=== PATIENT | male | born 1975 | race Caucasian/White ===

== ENCOUNTER 2020-08-28 14:01 | Observation (INO) ==
[2020-08-28] MEDS ORDERED: Ondansetron ODT 4 MG TAB.RAPDIS SL PRN (16:58)
[2020-08-28] MEDS ORDERED: Acetaminophen 325 MG TABLET PO PRN (16:58)
[2020-08-28] MEDS ORDERED: *HR* HYDROmorphone (PF) 1 MG/ML SYRINGE IVP PRN (17:01)
[2020-08-28] MEDS ORDERED: *HR* OxyCODONE Immed Rel 5 MG TABLET PO PRN (17:01)
[2020-08-28] MEDS ORDERED: Ringers Solution, Lactated 1,000 ML IVC ONE (17:13)
[2020-08-28 17:31] LABS: Hematocrit 41.2 % (37.5-50.1); Hemoglobin 14.1 g/dL (12.9-16.9); Mean Corpuscular HGB Conc 34.2 g/dL (31.6-35.5); Mean Corpuscular Hemoglobin 30.7 pg (28.0-33.3); Mean Corpuscular Volume 89.8 fL (83.0-100.0); Mean Platelet Volume 9.4 fL (9.4-12.4); Platelet Count 257 K/mcL (140-400); Red Blood Count 4.59 M/mcL (4.19-5.50); Red Cell Distribution Width 13.3 % (11.5-14.5); White Blood Count 13.2 K/mcL (4.3-11.1)
[2020-08-28 17:39] LABS: INR 1.1; Prothrombin Time 12.7 Seconds (9.4-12.1)
[2020-08-28 17:51] LABS: BUN/Creatinine Ratio 10 (6-26); Blood Urea Nitrogen 12 mg/dL (6-20); Calcium 8.9 mg/dL (8.6-10.3); Carbon Dioxide 24 mEq/L (23-29); Chloride 108 mEq/L (98-107); Glucose 101 mg/dL (70-105); Osmolality,Calculated 284 (280-300); Potassium 4.2 mEq/L (3.5-5.1); Sodium 137 mEq/L (136-145); eGFR For African Americans > 60 (> 60); eGFR For Non-African Americans > 60 (> 60)
[2020-08-28] MEDS: Ringers Solution, Lactated 1,000 ML IVC SCH (18:26)
[2020-08-28] MEDS: Nicotine 21 MG PATCH.TD24 TD SCH (18:26)
[2020-08-29 03:16] LABS: Hematocrit 39.1 % (37.5-50.1); Hemoglobin 13.1 g/dL (12.9-16.9); Mean Corpuscular HGB Conc 33.5 g/dL (31.6-35.5); Mean Corpuscular Hemoglobin 30.4 pg (28.0-33.3); Mean Corpuscular Volume 90.7 fL (83.0-100.0); Platelet Count 239 K/mcL (140-400); Red Blood Count 4.31 M/mcL (4.19-5.50); Red Cell Distribution Width 13.3 % (11.5-14.5); White Blood Count 9.1 K/mcL (4.3-11.1)
[2020-08-29 03:34] LABS: BUN/Creatinine Ratio 13 (6-26); Blood Urea Nitrogen 14 mg/dL (6-20); Calcium 8.9 mg/dL (8.6-10.3); Carbon Dioxide 25 mEq/L (23-29); Chloride 107 mEq/L (98-107); Glucose 115 mg/dL (70-105); Osmolality,Calculated 287 (280-300); Potassium 3.9 mEq/L (3.5-5.1); Sodium 138 mEq/L (136-145); eGFR For African Americans > 60 (> 60); eGFR For Non-African Americans > 60 (> 60)
[2020-08-29] MEDS ORDERED: *HR* FentaNYL (PF) 100 MCG/2 ML VIAL IVP PRN (07:13)
[2020-08-29] MEDS ORDERED: *HR* HYDROmorphone PF 0.5 MG/0.5 ML SYRINGE IVP PRN (07:13)
[2020-08-29] MEDS: Nicotine 21 MG PATCH.TD24 TD SCH (07:29)
[2020-08-29] MEDS: Ringers Solution, Lactated 1,000 ML IVC SCH ×2 (07:32→12:00)
[2020-08-29] MEDS ORDERED: Isovue-300 50ML VIAL ONE (08:14)
[2020-08-29] MEDS ORDERED: *HR* Propofol 200 MG/20 ML VIAL IVP ONE (08:52)
[2020-08-29] MEDS ORDERED: Lidocaine -MPF 2% 2 ML VIAL ONE (08:53)
[2020-08-29] MEDS ORDERED: Ondansetron 4 MG/2 ML VIAL ONE (08:53)
[2020-08-29] MEDS ORDERED: *HR* FentaNYL (PF) 100 MCG/2 ML VIAL ONE (08:53)
[2020-08-29] MEDS ORDERED: *HR* Midazolam HCl 2 MG/2 ML VIAL ONE (08:53)
[2020-08-29] MEDS ORDERED: Ketorolac 30 MG/ML VIAL ONE (09:32)
[2020-08-29] MEDS ORDERED: EPHEDrine 50 MG/ML VIAL ONE (09:40)
[2020-08-29] MEDS ORDERED: Ketorolac 15 MG/ML VIAL IVP PRN (10:34)
[2020-08-29] MEDS ORDERED: *HR* OxyCODONE Immed Rel 5 MG TABLET PO PRN (10:34)
[2020-08-29] MEDS ORDERED: *HR* HYDROmorphone (PF) 1 MG/ML SYRINGE IVP PRN (10:34)
[2020-08-29] MEDS ORDERED: Ondansetron ODT 4 MG TAB.RAPDIS SL PRN (10:34)
[2020-08-29] MEDS: Acetaminophen IV 1,000 MG/100 ML BAG IVPB SCH ×2 (12:04→18:11)
[2020-08-29] MEDS: *HR* HYDROmorphone (PF) 1 MG/ML SYRINGE IVP PRN (17:11)
[2020-08-30] MEDS: Acetaminophen IV 1,000 MG/100 ML BAG IVPB SCH ×3 (00:40→13:31)
[2020-08-30] MEDS: Ringers Solution, Lactated 1,000 ML IVC SCH (00:45)
[2020-08-30] MEDS: *HR* HYDROmorphone (PF) 1 MG/ML SYRINGE IVP PRN (03:33)
[2020-08-30] MEDS ORDERED: Ketorolac 30 MG/ML VIAL IVP ONE (08:19)
[2020-08-30] MEDS ORDERED: Nicotine 21 MG PATCH.TD24 TD SCH (09:00)
[2020-08-30 11:28] VITALS: BP 124/76
== END 2020-08-30 14:46 | disposition home or self-care (01) ==
LOC: 3ANU → SUATTDRO 16:30
PROVIDERS: ADMIT Internal Medicine; ATTEND Internal Medicine